=== PATIENT | male | born 1960 | race Caucasian/White ===

== ENCOUNTER → 2016-12-26 | Outpatient (CLI) | payer BC, OTHER ==
--- NOTE | 2016-12-26 11:00 | MR ---
EXAMINATION: MRI cervical spine HISTORY: Pain and left arm COMPARISON: None TECHNIQUE: Multiplanar and multisequence images obtained of the cervical spine without contrast. FINDINGS: The cervical spinal alignment is normal. The vertebral body heights appear maintained. The re is no abnormal cervical spinal cord signal. No suspicious bone marrow signal changes. The visuali zed intracranial compartments appear normal. The prevertebral soft tissues appear unremarkable. C2-C3: Small right lateral osteophyte disc complex with uncovertebral hypertrophy. No significant sp inal canal stenosis. Moderate right neural foraminal stenosis. C3-C4: Mild bilateral uncovertebral hypertrophy with mild to moderate left neuroforaminal stenosis. C4-C5: Small diffuse disc bulge without significant spinal canal stenosis. Moderate bilateral neural foraminal stenosis accentuated by uncovertebral hypertrophy. C5-C6: Moderate diffuse disc bulge asymmetric to the left para midline region abutting the spinal co rd. Mild overall spinal canal stenosis. Severe left and mild right neural foraminal stenosis accentu ated by uncovertebral hypertrophy. C6-C7: Small diffuse disc bulge asymmetric to the left para midline region, abutting the spinal cord . No significant neuroforaminal stenosis. C7-T1: Moderate diffuse disc bulge with an annular tear resulting in mild spinal canal stenosis. Mil d to moderate bilateral neural foraminal stenosis. IMPRESSION: 1. Multilevel degenerative disc disease noted within the cervical spine most prominent from C4 to C7 with individual details above.
== END ==
LOC: MW.MRI 08:08
DX: M79.602 Pain in left arm (principal); M50.221 Other cervical disc displacement at C4-C5 level; M50.222 Other cervical disc displacement at C5-C6 level; M50.223 Other cervical disc displacement at C6-C7 level
CPT/HCPCS: 72141; 72141-26

== ENCOUNTER 2017-05-18 08:44 | Emergency (ER) | payer BC, OTHER ==
--- NOTE | 2017-05-18 09:01 | EDM.PDOC ---
ED HPI GENERAL MEDICAL PROBLEM - General Chief Complaint: Lower Extremity Injury/Pain Stated Complaint: BLOOD CLOT IN RT LEG Time Seen by Provider: 05/18/17 08:52 - History of Present Illness INITIAL COMMENTS - FREE TEXT/NARRATIVE: HISTORY AND PHYSICAL: History of present illness: The patient is a 57-year-old male with a history of hypertension and hypothyroidism who had a cervical spine fusion April 13 and presents for evaluation of an abnormal leg ultrasound that was performed yesterday. The patient follows at the [place] clinic and was seen by of [place] physician yesterday for 2 weeks of pain and discomfort at his right knee radiating up to his thigh. He says that he has a history of gout and did have a gout flareup in the other left knee after his surgery and when the pain and swelling started in the right knee and thigh he thought it might be gout but it didn't have the characteristic warmth or redness. He says that swelling in the lower leg started yesterday and he was referred to get a Doppler ultrasound. He specifically says that the swelling started in the knee and thigh and then migrated to the calf. The patient had that study and was called last evening with the test results and was told that he needed to come to our ER for a blood clot. I have reviewed that Doppler ultrasound of the right lower leg which reveals a "possible small venous thrombus within the proximal tibial posterior vein and the remaining venous system appears patent". The patient says that he has not really had calf pain or swelling until the last 24-48 hours. He has no neurosensory changes in his leg and has no systemic complaints of fever chills chest pain shortness of breath or any other swelling of any other extremities. He says that since his neck surgery he has never felt better from that perspective and has no pain. He says the only discomfort he has now is in the calf due to the swelling he denies any recent trauma to this area. Review of systems: As per history of present illness and below otherwise all systems reviewed and negative. Past medical history: As per history of present illness and as reviewed below otherwise noncontributory. Surgical history: As per history of present illness and as reviewed below otherwise noncontributory. Social history: No reported history of drug or alcohol abuse. Family history: As per history of present illness and as reviewed below otherwise noncontributory. Physical exam: Gen.: Well-developed mildly overweight male who is nontoxic and speaking clearly and easily in ED. Vital signs have been reviewed by me HEENT: Atraumatic, normocephalic, negative for conjunctival pallor or scleral icterus, mucous membranes moist, throat clear, neck supple, nontender, trachea midline. Lungs: Clear to auscultation, breath sounds equal bilaterally, chest nontender. Heart: S1S2, regular rate and rhythm no overt murmurs Abdomen: Soft, nondistended, nontender. NABS Pelvis: Stable nontender. Genitourinary: Deferred. Rectal: Deferred. Extremities: Atraumatic, at the right knee there is some chronic arthritic changes and chronic skin changes seen but no joint effusion no warmth no erythema in the proximal thigh is without tenderness medially in the compartment is soft. The right calf is visibly mildly larger than the left and there is tenderness with palpation of the deep calf as well as the popliteal fossa but no palpable cord. The soft tissue swelling is not pedal edema. Neurovascular unremarkable. Neuro: Awake, alert, oriented. Cranial nerves II through XII unremarkable. Cerebellum unremarkable. Motor and sensory unremarkable throughout. Exam nonfocal. Diagnostics: CBC CMP uric acid CRP sedimentation rate, right knee x-ray Doppler ultrasound of the right lower extremity I will discuss with our radiologist the possibility of repeating the ultrasound as there is more swelling for the patient then yesterday and in light of the equivocal results yesterday Case was discussed with Dr. Kirby our radiologist who said that it was a difficult exam and he did not feel that it was totally clear and that the patient does have more swelling he would recommend repeating it today which we will do. He also said that the location of the abnormality that he sees is not necessarily one that is treated with anticoagulation. I did discuss with the patient that we need to start anticoagulation he has no history of GI bleeding bleeding gums or other abnormalities with his blood Patient is aware of all testing results including the elevation of the CRP sedimentation rate and uric acid which may indicate a coexisting arthritides/ gouty arthritis that may be growing along with the posterior tibial DVT. We will go ahead and start Lovenox here as well as Coumadin and instruct him on how to give Lovenox. I strictly cautioned him that [facility] and to monitor the Coumadin so that the Lovenox can be stopped. I've advised him on reasons to return. Therapeutics: Lovenox and teaching Impression: Right posterior proximal tibial vein DVT Definitive disposition and diagnosis as appropriate pending reevaluation and review of above. Right Lower Leg Pain Score (Numeric/FACES): 2 - Related Data Allergies Allergy/AdvReac Type Severity Reaction Status Date / Time No Known Allergies Allergy Verified 05/18/17 08:51 Home Meds: Home Meds Lisinopril 40 mg PO DAILY 04/11/16 [History] NIFEdipine [Nifedipine ER] 30 mg PO DAILY 04/11/16 [History] Allopurinol [Zyloprim] 100 mg PO DAILY 05/30/16 [History] Levothyroxine Sodium [Synthroid] 12.5 mcg PO DAILY 05/18/17 [History] Past Medical History Cardiovascular History: Reports: Hypertension Musculoskeletal History: Reports: Gout - Infectious Disease History Infectious Disease History: Reports: Chicken Pox - Past Surgical History Musculoskeletal Surgical History: Reports: Carpal Tunnel Social & Family History - Family History Family Medical History: Noncontributory - Tobacco Use Smoking Status *Q: Unknown Ever Smoked - Recreational Drug Use Recreational Drug Use: No Review of Systems - Review of Systems Review Of Systems: ROS reveals no pertinent complaints other than HPI. ED EXAM, GENERAL - Physical Exam Exam: See Below (See dictation) Course - Vital Signs Last Recorded V/S: Last Vital Signs Temp 36.1 C 05/18/17 08:53 Pulse 80 05/18/17 08:53 Resp 18 05/18/17 08:53 BP 153/93 H 05/18/17 08:53 Pulse Ox 96 05/18/17 08:53 - Orders/Labs/Meds Orders: Active Orders 24 hr Category Date Time Status INR,PT,PROTHROMBIN TIME [COAG] Stat Lab 05/18/17 10:55 Ordered Labs: Laboratory Tests 05/18/17 05/18/17 Range/Units 09:24 09:24 WBC 8.39 (4.0-11.0) K/uL RBC 5.00 (4.50-5.90) M/uL Hgb 14.6 (13.0-17.0) g/dL Hct 42.5 (38.0-50.0) % MCV 85.0 (80.0-98.0) fL MCH 29.2 (27.0-32.0) pg MCHC 34.4 (31.0-37.0) g/dL RDW Std Deviation 39.1 (28.0-62.0) fl RDW Coeff of Mark 13 (11.0-15.0) % Plt Count 296 (150-400) K/uL MPV 8.70 (7.40-12.00) fL Neut % (Auto) 58.7 (48.0-80.0) % Lymph % (Auto) 27.2 (16.0-40.0) % [place] % (Auto) 10.8 (0.0-15.0) % Eos % (Auto) 2.6 (0.0-7.0) % Baso % (Auto) 0.7 (0.0-1.5) % Neut # (Auto) 4.9 (1.4-5.7) K/uL Lymph # (Auto) 2.3 (0.6-2.4) K/uL [place] # (Auto) 0.9 H (0.0-0.8) K/uL Eos # (Auto) 0.2 (0.0-0.7) K/uL Baso # (Auto) 0.1 (0.0-0.1) K/uL Nucleated RBC % 0.0 /100WBC Nucleated RBCs # 0 K/uL ESR 22 H (0-19) mm/hr Sodium 136 (136-146) mmol/L Potassium 4.1 (3.5-5.1) mmol/L Chloride 100 (98-110) mmol/L Carbon Dioxide 28 (21-31) mmol/L BUN 16 (6.0-23.0) mg/dL Creatinine 1.2 (0.6-1.5) mg/dL Est Cr Clr Drug Dosing 66.75 mL/min Estimated GFR (MDRD) > 60.0 ml/min Glucose 98 (60-110) mg/dL Uric Acid 8.3 H (2.1-7.4) mg/dL Calcium 9.9 (8.8-10.8) mg/dL Total Bilirubin 0.4 (0.1-1.5) mg/dL AST 17 (5-40) IU/L ALT 21 (8-54) IU/L Alkaline Phosphatase 95 (40-150) C-Reactive Protein 2.22 H (0.0-0.5) mg/dL Total Protein 7.7 (6.0-8.0) g/dL Albumin 4.2 (3.5-5.0) g/dL Globulin 3.5 (2.0-3.5) g/dL Albumin/Globulin Ratio 1.2 L (1.3-2.8) Meds: Medications Discontinued Medications Generic Name Dose Route Start Last Admin Trade Name Freq PRN Reason Stop Dose Admin Enoxaparin Sodium 125 mg 05/18/17 10:53 Lovenox SUBCUT 05/18/17 10:54 ONETIME ONE Departure - Departure Time of Disposition: 10:56 Disposition: Home, Self-Care 01 Condition: Good Clinical Impression: DVT (deep venous thrombosis) Qualifiers: DVT location: lower extremity Affected thrombotic vein of extremity: tibial Chronicity: acute Laterality: right Qualified Code(s): I82.441 - Acute embolism and thrombosis of right tibial vein - Discharge Information Instructions: How and Where to Give Subcutaneous Enoxaparin Injections Referrals: PCP,None [Primary Care Provider] - Forms: ED Department Discharge Additional Instructions: The following information is given to patients seen in the emergency department who are being discharged to home. This information is to outline your options for follow-up care. We provide all patients seen in our emergency department with a follow-up referral. The need for follow-up, as well as the timing and circumstances, are variable depending upon the specifics of your emergency department visit. If you don't have a primary care physician on staff, we will provide you with a referral. We always advise you to contact your personal physician following an emergency department visit to inform them of the circumstance of the visit and for follow-up with them and/or the need for any referrals to a consulting specialist. The emergency department will also refer you to a specialist when appropriate. This referral assures that you have the opportunity for followup care with a specialist. All of these measure are taken in an effort to provide you with optimal care, which includes your followup. Under all circumstances we always encourage you to contact your private physician who remains a resource for coordinating your care. When calling for followup care, please make the office aware that this follow-up is from your recent emergency room visit. If for any reason you are refused follow-up, please contact the [facility] emergency department at and ask to speak to the emergency department charge nurse. FERNANDO [facility] Primary care- Internal Medicine and Family [place] [phone] Please take your Lovenox and Coumadin as prescribed. [facility] to see if the Coumadin dose needs to be adjusted and if the Lovenox can be stopped. If they are unable to see you please come here to our clinic using resources given to above. Please elevate the leg as much as possible and return to ER as needed and as discussed. Please use [id number] medications for pain such as Motrin/ibuprofen or Tylenol - My Orders Last 24 Hours: My Active Orders 05/18/17 10:55 INR,PT,PROTHROMBIN TIME [COAG] Stat - Assessment/Plan Last 24 Hours: My Active Orders 05/18/17 10:55 INR,PT,PROTHROMBIN TIME [COAG] Stat
[2017-05-18 10:09] LABS: CHLORIDE,CL 100 mmol/L (98-110); SODIUM,NA 136 mmol/L (136-146)
--- NOTE | 2017-05-18 10:21 | CR ---
EXAMINATION: Right knee HISTORY: Pain COMPARISON: None TECHNIQUE: 2 views FINDINGS/IMPRESSION: There is no acute osseous abnormality, dislocation, or fracture. No significant joint effusion or soft tissue swelling. Small quadriceps insertional enthesophyte.
--- NOTE | 2017-05-18 10:32 | US ---
ULTRASOUND EXAMINATION OF the right lower extremity WITH DOPPLER HISTORY: Pain FINDINGS: Examination of the right leg was performed from the groin to the calf region. All visualized segment s including common femoral, proximal greater saphenous, superficial femoral, and popliteal veins appe ar patent with good compressibility and augmentation. Again noted is incomplete color Doppler flow wi thin the proximal posterior tibial vein. IMPRESSION: 1. Again no significant flow noted within the proximal posterior tibial vein, this likely represents an underlying venous thrombus.
[2017-05-18] MEDS ORDERED: Enoxaparin 150 MG/1 ML Syringe SUBCUT ONE (10:53)
[2017-05-18 11:28] VITALS: BP 147/81
== END 2017-05-18 11:24 | disposition home or self-care (01) ==
LOC: MW.ED 08:44
DX: I82.441 Acute embolism and thrombosis of right tibial vein (principal); I10 Essential (primary) hypertension; E03.9 Hypothyroidism, unspecified; Z79.899 Other long term (current) drug therapy
CPT/HCPCS: 36415; 73560; 80053; 84550; 85025; 85610; 85652; 86140; 93971; 96372; 99284; J1650; 99283